=== PATIENT | male | born 1965 | race Caucasian/White ===

== ENCOUNTER 2018-01-25 08:02 | Day surgery (SDC) | payer BC ==
[~2018-01-25] VITALS: Ht 188 cm; Wt 110.6 kg
[2018-01-25] MEDS ORDERED: ADVIL200 MG PO (08:33)
[2018-01-25] MEDS ORDERED: VITAMINC1000TA PO (08:33)
[2018-01-25] MEDS ORDERED: GLUCOSAMINE 1000 PO (08:34)
[2018-01-25] MEDS ORDERED: MULTI VITAMINS1 TAB PO (08:34)
[2018-01-25 08:41] VITALS: BP 121/80; PULSE 70; TEMP 98.4
[2018-01-25 09:50] VITALS: BP 118/84; PULSE 70; TEMP 97.6
[2018-01-25 10:00] VITALS: BP 114/87; PULSE 68
[2018-01-25 10:15] VITALS: BP 117/82; PULSE 56
[2018-01-25 10:30] VITALS: BP 112/80; PULSE 64
[2018-01-25 11:14] VITALS: BP 118/81; PULSE 62
== END 2018-01-25 11:05 | disposition home or self-care (01) ==
LOC: SDCO 08:02
DX: Z12.11 Encounter for screening for malignant neoplasm of colon (principal); Z80.0 Family history of malignant neoplasm of digestive organs; K63.5 Polyp of colon
CPT/HCPCS: J2250; J2405; J3010; J7030

== ENCOUNTER → 2019-07-29 | Outpatient (CLI) | payer BC ==
[~2019-07-29] VITALS: Ht 188 cm; Wt 114.4 kg
[~2019-07-29] MED LIST: ADVIL200 MG PO; GLUCOSAMINE 1000 PO; MULTI VITAMINS1 TAB PO; TYLENOL 500MG500 MG PO; VISION FORMULA1 EAC1 PO; VITAMINC1000TA PO
[2019-07-29 13:41] VITALS: BP 147/88; PULSE 66
[2019-07-29 14:35] VITALS: BP 137/81; PULSE 56
--- NOTE | 2019-07-29 14:50 | NUR ---
Pt able to ambulate across floor with out difficulty. Pt out to car per wheelchair. Denies pain at this time. Discharge instructions gone over previously pt verbalized understanding of instructions. Copy given to pt. Pt up and into truck without difficulty.
== END ==
LOC: COL.RAD 13:00
DX: M51.16 Intervertebral disc disorders with radiculopathy, lumbar region (principal); M99.73 Connective tissue and disc stenosis of intervertebral foramina of lumbar region
CPT/HCPCS: J3301

== ENCOUNTER → 2019-12-09 | Outpatient (CLI) | payer BC | LOC: COL.VAS 10:50 | DX: M79.89 Other specified soft tissue disorders (principal); Z96.652 Presence of left artificial knee joint ==

== ENCOUNTER 2020-12-12 12:21 | Emergency (ER) | payer BC ==
[~2020-12-12] VITALS: Ht 188 cm; Wt 113.6 kg
[2020-12-12 12:36] VITALS: TEMP 97.4
[2020-12-12 13:15] LABS: BASO % 0.3 % (0.0-2.0); EOS # 0.2 (0.0-0.7); EOS % 3.3 % (0-4.0); GRAN # 3.8 (1.4-6.5); GRAN % 62.4 % (42.2-75.2); HEMATOCRIT 43.7 % (42.0-52.0); HEMOGLOBIN 14.5 g/dl (13.5-18.0); LYMPH # 1.5 (1.2-3.4); LYMPH % 24.2 % (20.0-51.0); MEAN CELL VOLUME 93 fl (80.0-100.0); MEAN CORPUSCULAR HEMOGLOBIN 31 pg (27.0-31.0); MEAN CORPUSCULAR HGB CONC 33 g/dl (33.0-37.0); MEAN PLATELET VOLUME 9.3 fl (7.4-10.4); MONO # 0.6 (0.1-0.6); MONO % 9.5 % (1.7-9.3); PLATELET COUNT 221 K/mm3 (130-400); RED BLOOD COUNT 4.69 M/mm3 (4.20-5.60)
[2020-12-12 13:19] LABS: ALANINE AMINOTRANSFERASE 35 U/L (4-49); ALBUMIN 4.9 gm/dL (3.5-5.0); ALKALINE PHOSPHATASE 89 U/L (50-136); ANION GAP 11 mmol/L (7-16); AST,SGOT 25 U/L (15-37); BILIRUBIN,TOTAL 0.6 mg/dL (0.0-1.0); BLOOD UREA NITROGEN 16 mg/dL (9-20); CALCIUM 9.8 mg/dL (8.4-10.2); CARBON DIOXIDE 26 mmol/L (22-30); CHLORIDE 103 mmol/L (98-107); CREATININE, serum 1.27 (0.66-1.25); GLUCOSE 92 mg/dL (74-106); POTASSIUM 4.3 mmol/L (3.4-5.0); SODIUM 140 mmol/L (137-145); TOTAL PROTEIN 7.9 gm/dL (6.4-8.2)
[2020-12-12 13:32] LABS: TROPONIN-I < 0.012 ng/mL (0.000-0.035)
[2020-12-12] MEDS ORDERED: ELIQUIS 5MG PO (14:12)
[2020-12-12 15:56] VITALS: BP 142/93; PULSE 83
== END 2020-12-12 15:59 | disposition home or self-care (01) ==
LOC: COL.ER 12:21
PROVIDERS: Emergency Medicine
DX: R07.9 Chest pain, unspecified (principal); Z79.01 Long term (current) use of anticoagulants; Z86.718 Personal history of other venous thrombosis and embolism
CPT/HCPCS: Q9967

== ENCOUNTER → 2021-01-03 | Outpatient (CLI) | payer BC ==
[~2021-01-03] MED LIST changes: +ELIQUIS 5MG PO
== END ==
LOC: COL.RAD
DX: N28.89 Other specified disorders of kidney and ureter (principal)

== ENCOUNTER → 2021-01-13 | Outpatient (CLI) | payer BC | LOC: COL.RAD 07:00 | DX: N28.1 Cyst of kidney, acquired (principal) | CPT/HCPCS: Q9967 ==

== ENCOUNTER 2021-10-24 15:21 | Emergency (ER) | payer BC ==
[~2021-10-24] VITALS: Ht 188 cm; Wt 113.6 kg
[2021-10-24 18:14] LABS: HEMATOCRIT 41.3 % (42.0-52.0); HEMOGLOBIN 14.3 g/dl (13.5-18.0); MEAN CELL VOLUME 89 fl (80.0-100.0); MEAN CORPUSCULAR HEMOGLOBIN 31 pg (27-31); MEAN CORPUSCULAR HGB CONC 35 g/dl (33.0-37.0); MEAN PLATELET VOLUME 9.9 fl (7.4-10.4); PLATELET COUNT 136 K/mm3 (130-400); RED BLOOD COUNT 4.64 M/mm3 (4.20-5.60); REDCELL DISTRIBUTION WIDTH-CV 13.4 % (11.5-14.5)
[2021-10-24 18:35] LABS: ALBUMIN 4.4 gm/dL (3.5-5.0); BILIRUBIN,TOTAL 0.7 mg/dL (0.2-1.2); CREATININE, serum 1.43 mg/dL (0.72-1.25); POTASSIUM 4.2 mmol/L (3.5-4.5); TOTAL PROTEIN 7.7 gm/dL (6.2-8.1)
[2021-10-24 19:08] VITALS: BP 118/79; PULSE 70; TEMP 100.1
[2021-10-24] MEDS ORDERED: ZOFRAN ODT4 MG PO (19:13)
[2021-10-24 19:40] LABS: BAND 4 % (0-10); LYMPHOCYTE 19 % (20.0-51.0); NEUTROPHILS 71 % (42.0-75.2); PLATELET ESTIMATE NORMAL (NORMAL)
== END 2021-10-24 22:00 | disposition home or self-care (01) ==
LOC: COL.ER 15:21
PROVIDERS: Personal Emergency Response Attendant
DX: U07.1 COVID-19 (principal); E86.0 Dehydration; E66.9 Obesity, unspecified; F17.220 Nicotine dependence, chewing tobacco, uncomplicated; Z68.32 Body mass index [BMI] 32.0-32.9, adult
CPT/HCPCS: J7030; M0245

== ENCOUNTER 2021-10-29 14:22 | Emergency (ER) | payer BC ==
[~2021-10-29] VITALS: Ht 188 cm; Wt 106.8 kg
[~2021-10-29 14:22] MED LIST changes: +ZOFRAN ODT4 MG PO
[2021-10-29 15:00] VITALS: BP 131/64; PULSE 63; TEMP 98.2
== END 2021-10-29 15:30 | disposition home or self-care (01) ==
LOC: COL.ER 14:22
DX: U07.1 COVID-19 (principal); R00.1 Bradycardia, unspecified; E66.9 Obesity, unspecified

== ENCOUNTER 2022-01-23 16:00 | Outpatient (RCR) | payer BC | END 2022-01-26 | disposition home or self-care (01) | LOC: MKS.ESL.OT | DX: I69.30 Unspecified sequelae of cerebral infarction (principal) ==

== ENCOUNTER → 2022-03-20 | Outpatient (CLI) | payer OTHER | LOC: COL.RAD 09:49 | DX: Z02.71 Encounter for disability determination (principal); M17.11 Unilateral primary osteoarthritis, right knee; M47.816 Spondylosis without myelopathy or radiculopathy, lumbar region; M51.36 Other intervertebral disc degeneration, lumbar region ==

== ENCOUNTER → 2022-04-11 14:49 | Outpatient (RCR) | payer BC | END | disposition home or self-care (01) | LOC: MKS.ESL.OT 01-27 16:00 | DX: I82.431 Acute embolism and thrombosis of right popliteal vein (principal); I63.9 Cerebral infarction, unspecified; I77.74 Dissection of vertebral artery ==

== ENCOUNTER → 2023-01-02 | Outpatient (CLI) | payer BC | LOC: COL.RAD 08:13 | DX: M17.0 Bilateral primary osteoarthritis of knee (principal); Z86.718 Personal history of other venous thrombosis and embolism ==